=== PATIENT | female | born 1995 | race African-American/Black ===

== ENCOUNTER 2022-09-17 00:24 | Emergency (ER) | payer OTHER ==
[2022-09-17 00:40] VITALS: BP 105/71; PULSE 74; RESP 18; BMI 16.9
[2022-09-17 00:51] VITALS: TEMP 98.4
== END 2022-09-17 02:00 | disposition home or self-care (01) ==
LOC: JER 00:24
DX: S69.91XA Unspecified injury of right wrist, hand and finger(s), initial encounter (principal); M79.644 Pain in right finger(s); M79.89 Other specified soft tissue disorders; W49.04XA Ring or other jewelry causing external constriction, initial encounter; Y93.89 Activity, other specified; Y92.009 Unspecified place in unspecified non-institutional (private) residence as the place of occurrence of the external cause
CPT/HCPCS: 99283-25

== ENCOUNTER 2023-08-25 20:13 | Emergency (ER) | payer OTHER ==
[2023-08-25 20:23] VITALS: BP 115/72; PULSE 79; RESP 18; TEMP 98.5; BMI 18.2
[2023-08-25] MEDS ORDERED: BACITRACIN ZINC 15 GM TUBE TOPICAL OINTMENT ONE (20:59)
[2023-08-25] MEDS ORDERED: CEPHALEXIN MONOHYDRATE 500 MG CAPSULE (UD) ONE (20:59)
[2023-08-25] MEDS: BACITRACIN ZINC 15 GM TUBE TOPICAL OINTMENT TP ONE (21:04)
[2023-08-25] MEDS: CEPHALEXIN MONOHYDRATE 500 MG CAPSULE (UD) PO ONE (21:04)
== END 2023-08-25 21:27 | disposition home or self-care (01) ==
LOC: JERFT 20:13
DX: S99.922A Unspecified injury of left foot, initial encounter (principal); L03.032 Cellulitis of left toe; V00.818A Other accident with wheelchair (powered), initial encounter
CPT/HCPCS: 73660-TC-LT-FY; 99283-25